=== PATIENT | female | born 1950 | race Caucasian/White ===

== ENCOUNTER 2016-12-09 20:40 | Inpatient (IN) | payer OTHER ==
[~2016-12-09] VITALS: Ht 157.5 cm; Wt 86.6 kg
[~2016-12-09 20:40] MED LIST: APPLE CIDER VI1 EAC1 PO; ASPIR-LOW81 MG PO; ASPIR-TRIN325 M1 PO; BISOPROLOL-HCT1 EACH PO; CELEBREX200 MG PO; CYMBALTA60 MG PO; Cymbalta PO; Ecotrin PO; FENOFIBRATE160 M1 PO; FEOSOL325 MG PO; IMDUR30 MG PO; L-LYSINE1000 M1 PO; LIPITOR40 MG PO; LISINOPRIL40 MG PO; LYSINE,L-LYSIN500 MG PO; Levothroid,Synthroid PO; Lipitor PO; NITROSTAT0.4 MG SL; NORVASC5 MG PO; Norvasc PO; PERCOCET 5/31 TABLET PO; PERCOCET 7.51 TABLET PO; PLAVIX75 MG PO; Percocet 7.5/325,End PO; Plavix PO; SENOKOT S,PE1 TABLET PO; SYNTHROID50 MCG PO; TOPAMAX50 MG PO; Topamax PO; Vicodin,Lortab 5/500 PO; ZESTRIL,PRINIVI40 M1 PO; ZETIA10 MG PO; ZIAC 10/6.251 TABLET PO; Zestril,Prinivil PO; Zetia PO; Ziac 10/6.25 PO; Zoloft PO
[2016-12-09 21:26] LABS: CREATININE 1.5 mg/dL (0.6-1.3)
[2016-12-09 21:44] LABS: HEMATOCRIT 46.9 % (36.0-46.0); MCH 29.2 PG (29.0-34.0); MCHC 33.3 G/DL (30.0-36.0); MCV 87.8 FL (83-99); MEAN PLAT.VOLUME 11.1 uM^3 (9.5-12.4); PLATELET COUNT 322 K/uL (156-360); RBC DIS.WIDTH-CV 13.5 % (11.8-14.6); RBC DIS.WIDTH-SD 42.7 % (39-53); RED BLOOD COUNT 5.34 M/uL (3.80-5.20); WHITE BLOOD COUNT 7.8 K/uL (4.1-10.2)
[2016-12-09 21:55] LABS: CHLORIDE 102 mEq/L (99-109); SODIUM 138 mEq/L (136-147)
[2016-12-09 21:57] LABS: GLUCOSE 110 mg/dL (70-99)
[2016-12-09 21:59] LABS: ANION GAP 24 MEQ/L (2-14); TOTAL BILIRUBIN 1.5 mg/dL (0.0-1.0)
[2016-12-09 22:01] LABS: ALKALINE PHOSPHATASE 56 IU/L (3-129); GFR ESTIMATE (CALCULATED) 34 mL/min/
[2016-12-09 22:02] LABS: UREA NITROGEN (BUN) 31 mg/dL (9-23)
[2016-12-09 22:04] LABS: LIPASE 11 U/L (1.0-51.0)
[2016-12-09 22:09] LABS: TROP-I INTERPRETATION NEGATIVE; TROPONIN-I < 0.01 ng/mL (0.0-0.30)
[2016-12-09 22:12] LABS: INTER. NORMALIZED RATIO 1.4; PROTHROMBIN TIME 14.7 (9.2-11.2); PTT 33.1 (25-32)
[2016-12-09] MEDS ORDERED: NORVASC10 MG PO (22:19)
[2016-12-09] MEDS ORDERED: LO-DOSE ASPIRIN81 M2 PO (22:19)
[2016-12-09] MEDS ORDERED: PLAVIX75 MG PO (22:19)
[2016-12-09] MEDS ORDERED: LEVO-T50 MCG PO (22:19)
[2016-12-09] MEDS ORDERED: LIPITOR80 MG PO (22:19)
[2016-12-09] MEDS ORDERED: IMDUR30 MG PO (22:20)
[2016-12-09] MEDS ORDERED: ZESTRIL40 MG PO (22:20)
[2016-12-09] MEDS ORDERED: ZIAC 10/6.251 TABLET PO (22:20)
[2016-12-09] MEDS ORDERED: CYMBALTA60 MG PO (22:21)
[2016-12-09] MEDS ORDERED: SKELAXIN800 MG PO (22:24)
[2016-12-09] MEDS ORDERED: PERCOCET 7.51 TABLET PO (22:25)
[2016-12-09] MEDS ORDERED: L-LYSINE500 M1 PO (22:25)
[2016-12-09] MEDS ORDERED: MELATONIN5 M1 PO (22:26)
[2016-12-09] MEDS ORDERED: apple cider vinegar PO (22:26)
[2016-12-09] MEDS ORDERED: HAIR, SKIN & N1 EAC1 PO (22:56)
[2016-12-10] VITALS (27 sets, daily range): BP systolic 0–192; BP diastolic 0–115
[2016-12-10 02:46] LABS: HEMATOCRIT 37.4 % (36.0-46.0); MCH 29.4 PG (29.0-34.0); MCHC 32.4 G/DL (30.0-36.0); MCV 90.8 FL (83-99); RBC DIS.WIDTH-CV 13.8 % (11.8-14.6); RBC DIS.WIDTH-SD 45.3 % (39-53); RED BLOOD COUNT 4.12 M/uL (3.80-5.20); WHITE BLOOD COUNT 9.4 K/uL (4.1-10.2)
[2016-12-10 02:50] LABS: CHLORIDE 110 mEq/L (99-109); POTASSIUM 3.9 mEq/L (3.7-5.4); SODIUM 139 mEq/L (136-147)
[2016-12-10 02:53] LABS: ANION GAP 17 MEQ/L (2-14)
[2016-12-10 02:56] LABS: GFR ESTIMATE (CALCULATED) > 59 mL/min/; GLUCOSE 72 mg/dL (70-99); UREA NITROGEN (BUN) 25 mg/dL (9-23)
[2016-12-10 03:02] LABS: TROP-I INTERPRETATION NEGATIVE; TROPONIN-I 0.02 ng/mL (0.0-0.30)
[2016-12-10 03:57] LABS: MEAN PLAT.VOLUME 10.9 uM^3 (9.5-12.4)
[2016-12-10 03:59] LABS: PLATELET COUNT 204 K/uL (156-360)
[2016-12-10 05:14] LABS: METH RESISTANT S AUREUS PCR NEGATIVE (NEGATIVE)
[2016-12-10 05:16] LABS: PROBE CHECK PASS; SPECIMEN PROCESSING CONTROL PASS
[2016-12-10 10:29] LABS: BASE EXCESS -9.3 mEq/L (-3 to +3); BICARBONATE 15.3 mEq/L (22-26); CARBOXY HGB 1.9 % (0-5); METHEMOGLOBIN 1.9 % (0-1.5); PCO2 29 mm Hg (35-45); PO2 58 mm Hg (80-100); SITE RR; pH 7.33 (7.35-7.45)
[2016-12-10 10:30] LABS: COMMENTS - BLOOD GASES A+C+; DEVICE NC; O2 FLOW 4 L/MIN; TOTAL RESP RATE 24 resp/min
[2016-12-10 16:59] LABS: POINT-OF-CARE METER ID UU13113731
[2016-12-10 17:31] LABS: POINT-OF-CARE METER ID UU14162636
[2016-12-10 20:03] LABS: BASE EXCESS -4.2 mEq/L (-3 to +3); BICARBONATE 17.9 mEq/L (22-26); CARBOXY HGB 1.7 % (0-5); COMMENTS - BLOOD GASES C+A+; DEVICE NC; METHEMOGLOBIN 2.1 % (0-1.5); O2 FLOW 4 L/MIN; PCO2 24 mm Hg (35-45); PO2 50 mm Hg (80-100); SITE LR; TOTAL RESP RATE 32 resp/min; pH 7.48 (7.35-7.45)
[2016-12-10 20:20] LABS: HEMATOCRIT 31.9 % (36.0-46.0); MCH 29.4 PG (29.0-34.0); MCHC 33.5 G/DL (30.0-36.0); MCV 87.6 FL (83-99); RBC DIS.WIDTH-CV 14.2 % (11.8-14.6); RED BLOOD COUNT 3.64 M/uL (3.80-5.20); WHITE BLOOD COUNT 8.5 K/uL (4.1-10.2)
[2016-12-10 20:29] LABS: ABS NEUTROPHIL COUNT 6.8; ANISOCYTOSIS 1+; BASOPHILS 0.8 %; BURR CELLS 1+; EOSINOPHIL ABS CT 0; HEMATOLOGY COMMENT 1 SN; INSTRUMENT ABS NEUTROPHIL CT 7.3 K/uL; LYMPHOCYTES 10.3 % (15.0-45.0); METAMYELOCYTES 9.4 %; PLAT.SUFFICIENCY ADEQUATE; SEG.NEUTROPHILS 20.5 % (46.0-76.0)
[2016-12-10 20:30] LABS: ANION GAP 11 MEQ/L (2-14); CHLORIDE 109 MEQ/L (99-109); MAGNESIUM 1.3 mg/dl (1.3-2.7); PLATELET COUNT UNABLE TO REPORT K/uL (156-360); SAMPLE HEMOLYSIS CHECK 0; SAMPLE ICTERIC CHECK 0; SAMPLE LIPEMIA CHECK 0; SODIUM 139 MEQ/L (136-147)
[2016-12-10 20:40] LABS: GFR ESTIMATE (CALCULATED) > 59 mL/min/; GLUCOSE 100 mg/dL (70-99); UREA NITROGEN (BUN) 29 mg/dL (9-23)
[2016-12-10 23:34] LABS: ADD MIUA? YES; BILIRUBIN NEGATIVE; BLOOD MODERATE; COLOR AMBER ((YELLOW)); GLUCOSE (STRIP) NEGATIVE; KETONES NEGATIVE; LEUKOCYTES NEGATIVE; NITRITE NEGATIVE; PROTEIN (STRIP) 30; SPECIFIC GRAVITY 1.031 (1.000-1.030); UROBILINOGEN 0.2 MG/DL (0.2-1.0)
[2016-12-10 23:53] LABS: POINT-OF-CARE METER ID UU13113731; POINT-OF-CARE USER ID RADDRS44
[2016-12-10 23:59] LABS: AMORPHOUS URATES CRYSTALS 3+; BACTERIA 3+ /HPF; CASTS NONE SEEN /LPF; CRYSTALS PRESENT; EPITHELIAL CELLS RARE /HPF; MUCUS NONE SEEN /LPF; RED BLOOD CELLS NONE SEEN /HPF (0-5); WHITE BLOOD CELLS NONE SEEN /HPF (0-5)
[2016-12-11] VITALS (23 sets, daily range): BP systolic 135–189; BP diastolic 68–98
[2016-12-11 05:19] LABS: POINT-OF-CARE METER ID UU14174217; POINT-OF-CARE USER ID RADDRS44
[2016-12-11 05:59] LABS: HEMATOCRIT 25.6 % (36.0-46.0); MCH 29.7 PG (29.0-34.0); MCHC 33.6 G/DL (30.0-36.0); MCV 88.3 FL (83-99); MEAN PLAT.VOLUME 11.1 uM^3 (9.5-12.4); RBC DIS.WIDTH-CV 14.3 % (11.8-14.6); RBC DIS.WIDTH-SD 45.8 % (39-53); WHITE BLOOD COUNT 6.8 K/uL (4.1-10.2)
[2016-12-11 06:15] LABS: HEMATOCRIT 25.8 % (36.0-46.0); MCH 29.4 PG (29.0-34.0); MCHC 33.3 G/DL (30.0-36.0); MCV 88.1 FL (83-99); MEAN PLAT.VOLUME 10.8 uM^3 (9.5-12.4); RBC DIS.WIDTH-CV 14.4 % (11.8-14.6); RBC DIS.WIDTH-SD 45.8 % (39-53); RED BLOOD COUNT 2.93 M/uL (3.80-5.20)
[2016-12-11 06:17] LABS: PLATELET COUNT 156 K/uL (156-360)
[2016-12-11 06:17] LABS: PLATELET COUNT 151 K/uL (156-360)
[2016-12-11 06:26] LABS: TROP-I INTERPRETATION NEGATIVE; TROPONIN-I 0.16 ng/mL (0.0-0.30)
[2016-12-11 06:34] LABS: ABS NEUTROPHIL COUNT 5.6; ANISOCYTOSIS 1+; BAND NEUTROPHILS 49.6 % (0-8.0); EOSINOPHIL ABS CT 0; LYMPHOCYTES 12.4 % (15.0-45.0); METAMYELOCYTES 4.4 %; PLAT.SUFFICIENCY ADEQUATE; SEG.NEUTROPHILS 30.1 % (46.0-76.0)
[2016-12-11 06:49] LABS: ALKALINE PHOSPHATASE 37 IU/L (3-129); ANION GAP 9 MEQ/L (2-14); CHLORIDE 108 MEQ/L (99-109); GFR ESTIMATE (CALCULATED) > 59 mL/min/; GLUCOSE 95 mg/dL (70-99); POTASSIUM 3.7 MEQ/L (3.7-5.4); SAMPLE HEMOLYSIS CHECK 0; SAMPLE ICTERIC CHECK 0; SAMPLE LIPEMIA CHECK 0; SODIUM 139 MEQ/L (136-147); TOTAL BILIRUBIN 0.8 MG/DL (0.0-1.0); UREA NITROGEN (BUN) 28 mg/dL (9-23)
[2016-12-11 06:50] LABS: ANION GAP 8 MEQ/L (2-14); CHLORIDE 109 MEQ/L (99-109); GFR ESTIMATE (CALCULATED) > 59 mL/min/; GLUCOSE 93 mg/dL (70-99); POTASSIUM 3.8 MEQ/L (3.7-5.4); SAMPLE HEMOLYSIS CHECK 0; SAMPLE ICTERIC CHECK 0; SAMPLE LIPEMIA CHECK 0; SODIUM 139 MEQ/L (136-147); UREA NITROGEN (BUN) 28 mg/dL (9-23)
[2016-12-11 08:01] LABS: BASE EXCESS -0.8 mEq/L (-3 to +3); BICARBONATE 22.9 mEq/L (22-26); CARBOXY HGB 1.4 % (0-5); METHEMOGLOBIN 1.7 % (0-1.5); PCO2 33 mm Hg (35-45); PO2 93 mm Hg (80-100); pH 7.45 (7.35-7.45)
[2016-12-11 08:02] LABS: COMMENTS - BLOOD GASES A+C+; DEVICE HFNC; O2 FLOW 10 L/MIN; SITE LR; TOTAL RESP RATE 20 resp/min
[2016-12-11 12:04] LABS: POINT-OF-CARE METER ID UU13113731
[2016-12-11 12:33] LABS: MAGNESIUM 1.3 mg/dl (1.3-2.7)
[2016-12-11 17:33] LABS: POINT-OF-CARE METER ID UU13113731
[2016-12-12] VITALS (21 sets, daily range): BP systolic 164–203; BP diastolic 65–113
[2016-12-12 06:12] LABS: POINT-OF-CARE METER ID UU13113731
[2016-12-12 12:42] LABS: POINT-OF-CARE METER ID UU13113731
[2016-12-12 17:50] LABS: POINT-OF-CARE METER ID UU13113731
[2016-12-12 21:55] LABS: AP Bone Isoenzyme 60 % (28-66); AP Intestine Isoenzyme 0 % (1-24); AP Liver Isoenzyme 40 % (25-69); AP Macrohepatic Isoenzyme 0 % (<=0); AP Placental Isoenzyme 0 % (<=0); Alkaline Phosphatase, Total 42 U/L (33-130)
[2016-12-12 23:47] LABS: POINT-OF-CARE METER ID UU13113731
[2016-12-13] VITALS (19 sets, daily range): BP systolic 142–195; BP diastolic 67–100
[2016-12-13 05:19] LABS: POINT-OF-CARE METER ID UU13113803
[2016-12-13 06:29] LABS: EOSINOPHIL (%) 0.1 % (0-5); HEMATOCRIT 30.1 % (36.0-46.0); IMMATURE GRANULOCYTE (%) 3.4 % (0.0-0.7); IMMATURE GRANULOCYTE COUNT 0.6 K/uL; INSTRUMENT ABS NEUTROPHIL CT 13.2 K/uL; LYMPHOCYTE COUNT 1.4 K/uL (1.0-2.8); MCH 29.1 PG (29.0-34.0); MCHC 33.6 G/DL (30.0-36.0); MCV 86.7 FL (83-99); MEAN PLAT.VOLUME 10.4 uM^3 (9.5-12.4); MONOCYTE (%) 9.2 % (3-12); MONOCYTE COUNT 1.5 K/uL (0-0.8); NEUTROPHIL COUNT 13.2 K/uL (1.8-6.4); RBC DIS.WIDTH-CV 14.5 % (11.8-14.6); RBC DIS.WIDTH-SD 46.3 % (39-53); RED BLOOD COUNT 3.47 M/uL (3.80-5.20)
[2016-12-13 06:38] LABS: PLATELET COUNT 220 K/uL (156-360); WHITE BLOOD COUNT 16.7 K/uL (4.1-10.2)
[2016-12-13 06:54] LABS: ANION GAP 12 MEQ/L (2-14); CHLORIDE 102 MEQ/L (99-109); GFR ESTIMATE (CALCULATED) > 59 mL/min/; GLUCOSE 85 mg/dL (70-99); POTASSIUM 3.4 MEQ/L (3.7-5.4); SAMPLE HEMOLYSIS CHECK 0; SAMPLE ICTERIC CHECK 0; SAMPLE LIPEMIA CHECK 0; SODIUM 138 MEQ/L (136-147); UREA NITROGEN (BUN) 19 mg/dL (9-23)
[2016-12-13 07:02] LABS: ALKALINE PHOSPHATASE 83 IU/L (3-129); MAGNESIUM 1.6 mg/dl (1.3-2.7); TOTAL BILIRUBIN 1.1 MG/DL (0.0-1.0)
[2016-12-14] VITALS (14 sets, daily range): BP systolic 168–189; BP diastolic 60–84
[2016-12-14 05:50] LABS: HEMATOCRIT 29.9 % (36.0-46.0); MCH 28.6 PG (29.0-34.0); MCHC 32.8 G/DL (30.0-36.0); MCV 87.2 FL (83-99); MEAN PLAT.VOLUME 10.6 uM^3 (9.5-12.4); PLATELET COUNT 242 K/uL (156-360); RBC DIS.WIDTH-CV 14.7 % (11.8-14.6); RBC DIS.WIDTH-SD 47.2 % (39-53); RED BLOOD COUNT 3.43 M/uL (3.80-5.20)
[2016-12-14 06:18] LABS: ALKALINE PHOSPHATASE 75 IU/L (3-129); ANION GAP 10 MEQ/L (2-14); CHLORIDE 100 MEQ/L (99-109); GFR ESTIMATE (CALCULATED) > 59 mL/min/; GLUCOSE 103 mg/dL (70-99); MAGNESIUM 1.8 mg/dl (1.3-2.7); POTASSIUM 3.5 MEQ/L (3.7-5.4); SAMPLE HEMOLYSIS CHECK 0; SAMPLE ICTERIC CHECK 0; SAMPLE LIPEMIA CHECK 0; SODIUM 136 MEQ/L (136-147); TOTAL BILIRUBIN 1.2 MG/DL (0.0-1.0); UREA NITROGEN (BUN) 21 mg/dL (9-23)
[2016-12-15] VITALS (12 sets, daily range): BP systolic 128–202; BP diastolic 63–89
[2016-12-15 05:53] LABS: HEMATOCRIT 27.4 % (36.0-46.0); MCH 28.5 PG (29.0-34.0); MCHC 32.5 G/DL (30.0-36.0); MCV 87.8 FL (83-99); MEAN PLAT.VOLUME 10.3 uM^3 (9.5-12.4); PLATELET COUNT 243 K/uL (156-360); RBC DIS.WIDTH-CV 14.6 % (11.8-14.6); RBC DIS.WIDTH-SD 46.7 % (39-53); RED BLOOD COUNT 3.12 M/uL (3.80-5.20); WHITE BLOOD COUNT 26.8 K/uL (4.1-10.2)
[2016-12-15 06:24] LABS: ANION GAP 9 MEQ/L (2-14); CHLORIDE 96 MEQ/L (99-109); GFR ESTIMATE (CALCULATED) > 59 mL/min/; GLUCOSE 97 mg/dL (70-99); MAGNESIUM 1.8 mg/dl (1.3-2.7); POTASSIUM 3.4 MEQ/L (3.7-5.4); SAMPLE HEMOLYSIS CHECK 0; SAMPLE ICTERIC CHECK 0; SAMPLE LIPEMIA CHECK 0; SODIUM 134 MEQ/L (136-147); UREA NITROGEN (BUN) 15 mg/dL (9-23)
[2016-12-16] VITALS (11 sets, daily range): BP systolic 157–203; BP diastolic 64–120
[2016-12-16 06:01] LABS: HEMATOCRIT 26.2 % (36.0-46.0); MCH 29.2 PG (29.0-34.0); MCHC 32.8 G/DL (30.0-36.0); MCV 88.8 FL (83-99); MEAN PLAT.VOLUME 10.4 uM^3 (9.5-12.4); PLATELET COUNT 267 K/uL (156-360); RBC DIS.WIDTH-CV 14.8 % (11.8-14.6); RBC DIS.WIDTH-SD 46.9 % (39-53); RED BLOOD COUNT 2.95 M/uL (3.80-5.20); WHITE BLOOD COUNT 22.7 K/uL (4.1-10.2)
[2016-12-16 10:38] LABS: ANION GAP 9 MEQ/L (2-14); CHLORIDE 96 MEQ/L (99-109); MAGNESIUM 1.9 mg/dl (1.3-2.7); POTASSIUM 3.7 MEQ/L (3.7-5.4); SAMPLE HEMOLYSIS CHECK 0; SAMPLE ICTERIC CHECK 0; SAMPLE LIPEMIA CHECK 0; SODIUM 131 MEQ/L (136-147)
[2016-12-16 10:44] LABS: GFR ESTIMATE (CALCULATED) > 59 mL/min/; GLUCOSE 76 mg/dL (70-99); UREA NITROGEN (BUN) 14 mg/dL (9-23)
[2016-12-17] VITALS (12 sets, daily range): BP systolic 151–201; BP diastolic 70–87
[2016-12-17 06:09] LABS: HEMATOCRIT 25.4 % (36.0-46.0); MCH 29.1 PG (29.0-34.0); MCHC 33.1 G/DL (30.0-36.0); MCV 87.9 FL (83-99); MEAN PLAT.VOLUME 10.2 uM^3 (9.5-12.4); PLATELET COUNT 306 K/uL (156-360); RBC DIS.WIDTH-CV 14.5 % (11.8-14.6); RBC DIS.WIDTH-SD 46.2 % (39-53); RED BLOOD COUNT 2.89 M/uL (3.80-5.20); WHITE BLOOD COUNT 21.1 K/uL (4.1-10.2)
[2016-12-17 06:36] LABS: ANION GAP 11 MEQ/L (2-14); CHLORIDE 94 MEQ/L (99-109); GFR ESTIMATE (CALCULATED) > 59 mL/min/; GLUCOSE 76 mg/dL (70-99); POTASSIUM 3.3 MEQ/L (3.7-5.4); SAMPLE HEMOLYSIS CHECK 0; SAMPLE ICTERIC CHECK 0; SAMPLE LIPEMIA CHECK 0; SODIUM 134 MEQ/L (136-147); UREA NITROGEN (BUN) 11 mg/dL (9-23)
[2016-12-17 06:38] LABS: MAGNESIUM 1.5 mg/dl (1.3-2.7)
[2016-12-18] VITALS (9 sets, daily range): BP systolic 150–186; BP diastolic 66–74
[2016-12-18 06:55] LABS: HEMATOCRIT 24.5 % (36.0-46.0); MCH 28.5 PG (29.0-34.0); MCHC 32.2 G/DL (30.0-36.0); MCV 88.4 FL (83-99); MEAN PLAT.VOLUME 10.3 uM^3 (9.5-12.4); PLATELET COUNT 369 K/uL (156-360); RBC DIS.WIDTH-CV 14.3 % (11.8-14.6); RBC DIS.WIDTH-SD 46.4 % (39-53); RED BLOOD COUNT 2.77 M/uL (3.80-5.20); WHITE BLOOD COUNT 20.9 K/uL (4.1-10.2)
[2016-12-18 07:16] LABS: ANION GAP 10 MEQ/L (2-14); CHLORIDE 94 MEQ/L (99-109); GFR ESTIMATE (CALCULATED) > 59 mL/min/; GLUCOSE 70 mg/dL (70-99); POTASSIUM 3.6 MEQ/L (3.7-5.4); SAMPLE HEMOLYSIS CHECK 0; SAMPLE ICTERIC CHECK 0; SAMPLE LIPEMIA CHECK 0; SODIUM 132 MEQ/L (136-147); UREA NITROGEN (BUN) 11 mg/dL (9-23)
[2016-12-19] VITALS (21 sets, daily range): BP systolic 107–194; BP diastolic 37–95
[2016-12-19 06:21] LABS: ANION GAP 8 MEQ/L (2-14); CHLORIDE 94 MEQ/L (99-109); GFR ESTIMATE (CALCULATED) > 59 mL/min/; GLUCOSE 80 mg/dL (70-99); POTASSIUM 3.8 MEQ/L (3.7-5.4); SAMPLE HEMOLYSIS CHECK 0; SAMPLE ICTERIC CHECK 0; SAMPLE LIPEMIA CHECK 0; SODIUM 131 MEQ/L (136-147); UREA NITROGEN (BUN) 14 mg/dL (9-23)
[2016-12-19 06:26] LABS: BASOPHIL COUNT 0.1 K/uL (0-0.1); EOSINOPHIL (%) 0.5 % (0-5); EOSINOPHIL COUNT 0.1 K/uL (0-0.3); HEMATOCRIT 20.3 % (36.0-46.0); IMMATURE GRANULOCYTE (%) 1.9 % (0.0-0.7); IMMATURE GRANULOCYTE COUNT 0.4 K/uL; INSTRUMENT ABS NEUTROPHIL CT 15.9 K/uL; LYMPHOCYTE COUNT 1.3 K/uL (1.0-2.8); MCH 29.1 PG (29.0-34.0); MCV 88.3 FL (83-99); MEAN PLAT.VOLUME 10.3 uM^3 (9.5-12.4); MONOCYTE COUNT 1.3 K/uL (0-0.8); NEUTROPHIL (%) 83.7 % (45-76); NEUTROPHIL COUNT 15.9 K/uL (1.8-6.4); PLATELET COUNT 384 K/uL (156-360); RBC DIS.WIDTH-CV 14.6 % (11.8-14.6); RBC DIS.WIDTH-SD 45.9 % (39-53)
[2016-12-19 08:15] LABS: ALKALINE PHOSPHATASE 56 IU/L (3-129); DIRECT BILIRUBIN 0.3 mg/dL (0.0-0.3); MAGNESIUM 1.7 mg/dl (1.3-2.7); PREALBUMIN 5.6 mg/dL (10-40); TOTAL BILIRUBIN 0.7 MG/DL (0.0-1.0); TRIGLYCERIDES 156 MG/DL (Normal: <150)
[2016-12-20] VITALS (12 sets, daily range): BP systolic 127–178; BP diastolic 55–105
[2016-12-20 06:36] LABS: ANION GAP 8 MEQ/L (2-14); CHLORIDE 95 MEQ/L (99-109); GFR ESTIMATE (CALCULATED) > 59 mL/min/; MAGNESIUM 1.8 mg/dl (1.3-2.7); POTASSIUM 3.6 MEQ/L (3.7-5.4); SAMPLE HEMOLYSIS CHECK 0; SAMPLE ICTERIC CHECK 0; SAMPLE LIPEMIA CHECK 0; SODIUM 132 MEQ/L (136-147); UREA NITROGEN (BUN) 15 mg/dL (9-23)
[2016-12-20 06:38] LABS: GLUCOSE 133 mg/dL (70-99)
[2016-12-20 08:45] LABS: BASOPHIL COUNT 0.1 K/uL (0-0.1); EOSINOPHIL (%) 0.8 % (0-5); EOSINOPHIL COUNT 0.1 K/uL (0-0.3); IMMATURE GRANULOCYTE (%) 2.4 % (0.0-0.7); IMMATURE GRANULOCYTE COUNT 0.4 K/uL; INSTRUMENT ABS NEUTROPHIL CT 12.9 K/uL; LYMPHOCYTE COUNT 1.1 K/uL (1.0-2.8); MCH 29.8 PG (29.0-34.0); MCHC 33.1 G/DL (30.0-36.0); MEAN PLAT.VOLUME 10.5 uM^3 (9.5-12.4); MONOCYTE (%) 8.4 % (3-12); MONOCYTE COUNT 1.3 K/uL (0-0.8); NEUTROPHIL (%) 81.3 % (45-76); NEUTROPHIL COUNT 12.9 K/uL (1.8-6.4); PLATELET COUNT 425 K/uL (156-360); RBC DIS.WIDTH-CV 14.7 % (11.8-14.6); RBC DIS.WIDTH-SD 46.8 % (39-53); WHITE BLOOD COUNT 15.9 K/uL (4.1-10.2)
[2016-12-20 08:52] LABS: RED BLOOD COUNT 2.89 M/uL (3.80-5.20)
[2016-12-21 03:46] VITALS: BP 158/89
[2016-12-21 06:46] LABS: BASOPHIL COUNT 0.1 K/uL (0-0.1); EOSINOPHIL (%) 0.9 % (0-5); EOSINOPHIL COUNT 0.1 K/uL (0-0.3); IMMATURE GRANULOCYTE (%) 3.1 % (0.0-0.7); IMMATURE GRANULOCYTE COUNT 0.4 K/uL; INSTRUMENT ABS NEUTROPHIL CT 10.1 K/uL; LYMPHOCYTE COUNT 1.1 K/uL (1.0-2.8); MCH 29.1 PG (29.0-34.0); MCHC 32.3 G/DL (30.0-36.0); MEAN PLAT.VOLUME 10.4 uM^3 (9.5-12.4); MONOCYTE (%) 10.6 % (3-12); MONOCYTE COUNT 1.4 K/uL (0-0.8); NEUTROPHIL (%) 76.3 % (45-76); NEUTROPHIL COUNT 10.1 K/uL (1.8-6.4); PLATELET COUNT 483 K/uL (156-360); RBC DIS.WIDTH-CV 15.1 % (11.8-14.6); RBC DIS.WIDTH-SD 48.2 % (39-53); RED BLOOD COUNT 2.89 M/uL (3.80-5.20); WHITE BLOOD COUNT 13.2 K/uL (4.1-10.2)
[2016-12-21 07:15] LABS: ANION GAP 10 MEQ/L (2-14); CHLORIDE 99 MEQ/L (99-109); GFR ESTIMATE (CALCULATED) > 59 mL/min/; GLUCOSE 129 mg/dL (70-99); MAGNESIUM 1.8 mg/dl (1.3-2.7); POTASSIUM 3.9 MEQ/L (3.7-5.4); SAMPLE HEMOLYSIS CHECK 0; SAMPLE ICTERIC CHECK 0; SAMPLE LIPEMIA CHECK 0; SODIUM 134 MEQ/L (136-147); UREA NITROGEN (BUN) 15 mg/dL (9-23)
[2016-12-21 07:50] VITALS: BP 183/90
[2016-12-21 11:49] VITALS: BP 179/83
[2016-12-21 16:05] VITALS: BP 172/81
[2016-12-21 19:10] VITALS: BP 134/64
[2016-12-22] VITALS (7 sets, daily range): BP systolic 115–146; BP diastolic 55–73
[2016-12-22 07:10] LABS: ANION GAP 9 MEQ/L (2-14); CHLORIDE 100 MEQ/L (99-109); GFR ESTIMATE (CALCULATED) > 59 mL/min/; GLUCOSE 135 mg/dL (70-99); MAGNESIUM 1.8 mg/dl (1.3-2.7); POTASSIUM 4.4 MEQ/L (3.7-5.4); SAMPLE HEMOLYSIS CHECK 0; SAMPLE ICTERIC CHECK 0; SAMPLE LIPEMIA CHECK 0; SODIUM 135 MEQ/L (136-147); UREA NITROGEN (BUN) 19 mg/dL (9-23)
[2016-12-23] VITALS (7 sets, daily range): BP systolic 126–145; BP diastolic 58–78
[2016-12-23 06:33] LABS: HEMATOCRIT 26.8 % (36.0-46.0); MCH 29.5 PG (29.0-34.0); MCHC 32.5 G/DL (30.0-36.0); MCV 90.8 FL (83-99); MEAN PLAT.VOLUME 9.9 uM^3 (9.5-12.4); PLATELET COUNT 562 K/uL (156-360); RBC DIS.WIDTH-CV 15.1 % (11.8-14.6); RBC DIS.WIDTH-SD 49.9 % (39-53); RED BLOOD COUNT 2.95 M/uL (3.80-5.20); WHITE BLOOD COUNT 13.4 K/uL (4.1-10.2)
[2016-12-23 07:00] LABS: ANION GAP 9 MEQ/L (2-14); CHLORIDE 102 MEQ/L (99-109); GFR ESTIMATE (CALCULATED) > 59 mL/min/; GLUCOSE 129 mg/dL (70-99); MAGNESIUM 1.9 mg/dl (1.3-2.7); POTASSIUM 4.7 MEQ/L (3.7-5.4); SAMPLE HEMOLYSIS CHECK 0; SAMPLE ICTERIC CHECK 0; SAMPLE LIPEMIA CHECK 0; SODIUM 135 MEQ/L (136-147); UREA NITROGEN (BUN) 23 mg/dL (9-23)
[2016-12-24 04:00] VITALS: BP 130/62
[2016-12-24 06:26] LABS: BASOPHIL COUNT 0.1 K/uL (0-0.1); EOSINOPHIL (%) 0.8 % (0-5); EOSINOPHIL COUNT 0.1 K/uL (0-0.3); HEMATOCRIT 27.1 % (36.0-46.0); IMMATURE GRANULOCYTE (%) 4.8 % (0.0-0.7); IMMATURE GRANULOCYTE COUNT 0.8 K/uL; INSTRUMENT ABS NEUTROPHIL CT 11.3 K/uL; LYMPHOCYTE COUNT 1.5 K/uL (1.0-2.8); MCH 29.8 PG (29.0-34.0); MCHC 32.8 G/DL (30.0-36.0); MCV 90.6 FL (83-99); MEAN PLAT.VOLUME 9.8 uM^3 (9.5-12.4); MONOCYTE (%) 12.3 % (3-12); MONOCYTE COUNT 1.9 K/uL (0-0.8); NEUTROPHIL (%) 71.9 % (45-76); NEUTROPHIL COUNT 11.3 K/uL (1.8-6.4); PLATELET COUNT 566 K/uL (156-360); RBC DIS.WIDTH-CV 14.9 % (11.8-14.6); RBC DIS.WIDTH-SD 49.5 % (39-53); RED BLOOD COUNT 2.99 M/uL (3.80-5.20); WHITE BLOOD COUNT 15.7 K/uL (4.1-10.2)
[2016-12-24 06:53] LABS: ALKALINE PHOSPHATASE 63 IU/L (3-129); ANION GAP 8 MEQ/L (2-14); CHLORIDE 101 MEQ/L (99-109); DIRECT BILIRUBIN 0.1 mg/dL (0.0-0.3); GFR ESTIMATE (CALCULATED) > 59 mL/min/; GLUCOSE 117 mg/dL (70-99); PREALBUMIN 10.2 mg/dL (10-40); SAMPLE HEMOLYSIS CHECK 0; SAMPLE ICTERIC CHECK 0; SAMPLE LIPEMIA CHECK 0; SODIUM 133 MEQ/L (136-147); TRIGLYCERIDES 108 MG/DL (Normal: <150); UREA NITROGEN (BUN) 24 mg/dL (9-23)
[2016-12-24 07:00] LABS: TOTAL BILIRUBIN 0.4 MG/DL (0.0-1.0)
[2016-12-24 09:01] VITALS: BP 140/83
[2016-12-24 11:08] VITALS: BP 129/73
[2016-12-24 15:00] VITALS: BP 138/65
[2016-12-24 15:40] LABS: C DIFF TOXIN NEGATIVE (NEGATIVE)
[2016-12-24 15:43] LABS: PROBE CHECK PASS; SPECIMEN PROCESSING CONTROL PASS
[2016-12-24 20:00] VITALS: BP 133/65
[2016-12-24 23:41] VITALS: BP 163/74
[2016-12-25 04:55] VITALS: BP 177/82
[2016-12-25 06:58] LABS: HEMATOCRIT 28.4 % (36.0-46.0); MCHC 32.4 G/DL (30.0-36.0); MCV 89.6 FL (83-99); MEAN PLAT.VOLUME 9.8 uM^3 (9.5-12.4); PLATELET COUNT 553 K/uL (156-360); RBC DIS.WIDTH-CV 14.6 % (11.8-14.6); RBC DIS.WIDTH-SD 47.9 % (39-53); RED BLOOD COUNT 3.17 M/uL (3.80-5.20); WHITE BLOOD COUNT 15.7 K/uL (4.1-10.2)
[2016-12-25 07:24] LABS: ANION GAP 12 MEQ/L (2-14); CHLORIDE 97 MEQ/L (99-109); GFR ESTIMATE (CALCULATED) > 59 mL/min/; GLUCOSE 122 mg/dL (70-99); MAGNESIUM 2.1 mg/dl (1.3-2.7); POTASSIUM 4.6 MEQ/L (3.7-5.4); SAMPLE HEMOLYSIS CHECK 0; SAMPLE ICTERIC CHECK 0; SAMPLE LIPEMIA CHECK 0; SODIUM 131 MEQ/L (136-147); UREA NITROGEN (BUN) 29 mg/dL (9-23)
[2016-12-25 08:51] VITALS: BP 145/69
[2016-12-25 11:33] VITALS: BP 125/60
[2016-12-25 14:51] VITALS: BP 139/77
[2016-12-25 19:55] VITALS: BP 118/59
[2016-12-25 23:51] VITALS: BP 138/66
[2016-12-26 05:07] VITALS: BP 155/73
[2016-12-26 07:20] VITALS: BP 159/75
[2016-12-26 11:37] VITALS: BP 127/65
[2016-12-26 12:22] LABS: HEMATOCRIT 25.4 % (36.0-46.0); MCH 29.6 PG (29.0-34.0); MCHC 32.7 G/DL (30.0-36.0); MCV 90.7 FL (83-99); MEAN PLAT.VOLUME 9.9 uM^3 (9.5-12.4); PLATELET COUNT 505 K/uL (156-360); RBC DIS.WIDTH-CV 14.5 % (11.8-14.6); RBC DIS.WIDTH-SD 47.6 % (39-53); WHITE BLOOD COUNT 12.8 K/uL (4.1-10.2)
[2016-12-26 14:03] LABS: ANION GAP 11 MEQ/L (2-14); CHLORIDE 98 MEQ/L (99-109); GFR ESTIMATE (CALCULATED) > 59 mL/min/; GLUCOSE 117 mg/dL (70-99); MAGNESIUM 1.8 mg/dl (1.3-2.7); POTASSIUM 3.8 MEQ/L (3.7-5.4); SAMPLE HEMOLYSIS CHECK 0; SAMPLE ICTERIC CHECK 0; SAMPLE LIPEMIA CHECK 0; SODIUM 135 MEQ/L (136-147); UREA NITROGEN (BUN) 26 mg/dL (9-23)
[2016-12-26 15:42] VITALS: BP 141/65
[2016-12-26 19:40] VITALS: BP 140/65
[2016-12-26 23:32] VITALS: BP 139/66
[2016-12-27 04:55] VITALS: BP 136/62
[2016-12-27 07:13] LABS: HEMATOCRIT 26.3 % (36.0-46.0); MCH 29.1 PG (29.0-34.0); MCHC 32.7 G/DL (30.0-36.0); MCV 88.9 FL (83-99); MEAN PLAT.VOLUME 9.6 uM^3 (9.5-12.4); PLATELET COUNT 427 K/uL (156-360); RBC DIS.WIDTH-CV 14.4 % (11.8-14.6); RBC DIS.WIDTH-SD 46.7 % (39-53); RED BLOOD COUNT 2.96 M/uL (3.80-5.20); WHITE BLOOD COUNT 10.8 K/uL (4.1-10.2)
[2016-12-27 07:46] LABS: ANION GAP 9 MEQ/L (2-14); CHLORIDE 100 MEQ/L (99-109); GFR ESTIMATE (CALCULATED) > 59 mL/min/; GLUCOSE 103 mg/dL (70-99); MAGNESIUM 1.7 mg/dl (1.3-2.7); SAMPLE HEMOLYSIS CHECK 0; SAMPLE ICTERIC CHECK 0; SAMPLE LIPEMIA CHECK 0; SODIUM 135 MEQ/L (136-147); UREA NITROGEN (BUN) 17 mg/dL (9-23)
[2016-12-27 08:00] VITALS: BP 156/72
[2016-12-27] MEDS ORDERED: NIFEDIPINE ER30 MG PO (10:48)
[2016-12-27] MEDS ORDERED: LOPRESSOR50 MG PO (10:48)
[2016-12-27] MEDS ORDERED: HYDROCHLOROTH12.5 M3 PO (10:48)
[2016-12-27 12:00] VITALS: BP 157/73
[2016-12-27 16:00] VITALS: BP 166/78
[2016-12-27] MEDS ORDERED: PERCOCET 7.51 TABLET PO (16:48)
[2016-12-27 16:53] VITALS: BP 158/74
== END 2016-12-27 18:00 | disposition home or self-care (01) | DRG 853 ==
LOC: EME → EDBD 20:40 → EME 20:40 → SDC 23:05 → 4WEST 12-10 02:17 → 4EAST 12-20 17:29 → 4SOUTH 12-26 15:11
PROVIDERS: Anesthesiology; Emergency Medicine; Hospitalist; Internal Medicine Critical Care Medicine; Internal Medicine Nephrology; Physician Assistant; Student in an Organized Health Care Education/Training Program; Surgery
DX: A41.51 Sepsis due to Escherichia coli [E. coli] (principal); R65.21 Severe sepsis with septic shock; J96.00 Acute respiratory failure, unspecified whether with hypoxia or hypercapnia; E43 Unspecified severe protein-calorie malnutrition; N17.9 Acute kidney failure, unspecified; E87.1 Hypo-osmolality and hyponatremia; R18.8 Other ascites; K76.0 Fatty (change of) liver, not elsewhere classified; K57.20 Diverticulitis of large intestine with perforation and abscess without bleeding; E87.6 Hypokalemia; I25.10 Atherosclerotic heart disease of native coronary artery without angina pectoris; Z95.5 Presence of coronary angioplasty implant and graft; E66.9 Obesity, unspecified; I10 Essential (primary) hypertension; E78.5 Hyperlipidemia, unspecified; E03.9 Hypothyroidism, unspecified; F32.9 Major depressive disorder, single episode, unspecified; Z87.891 Personal history of nicotine dependence; F11.20 Opioid dependence, uncomplicated; Z96.652 Presence of left artificial knee joint; Z98.82 Breast implant status; G89.29 Other chronic pain; M54.9 Dorsalgia, unspecified; R60.1 Generalized edema; E86.0 Dehydration; K94.09 Other complications of colostomy; E87.70 Fluid overload, unspecified; E83.42 Hypomagnesemia; Z68.34 Body mass index [BMI] 34.0-34.9, adult; K56.7 Ileus, unspecified; T81.4XXA Infection following a procedure, initial encounter
CPT/HCPCS: 10030; 36600; 71010; 74000; 74176; 74177; 77002; 80047; 80048; 80048 91; 80053; 80069; 80076; 81003; 82248; 82803; 82948; 83605; 83690; 83735; 83880; 84075 90; 84080 90; 84100; 84134; 84478; 84484; 84540; 84630 90; 85025; 85027; 85610; 85730; 86850; 86900; 86901; 86920; 87040; 87070; 87075; 87076; 87077; 87086; 87185; 87186; 87205; 87493; 87641; 87801; 88304; 88307; 93005; 94002; 94010; 94640; 94640 76; 94667; 94668; 94760; 94799; 97530 GO; 97530 GP; 99202; 99281; 99285; C1729; C1769; J0360; J0696; J1170; J1450; J1650; J1815; J1940; J2250; J2270; J2405; J2543; J2765; J2997; J3010; J3475; J3480; J7050; J7120; P9016; P9045; P9047; S0030

== ENCOUNTER 2017-03-14 11:42 | Inpatient (IN) | payer OTHER ==
[~2017-03-14] VITALS: Ht 157.5 cm; Wt 77.1 kg
[~2017-03-14 11:42] MED LIST changes: +HAIR, SKIN & N1 EAC1 PO; +HYDROCHLOROTH12.5 M3 PO; +L-LYSINE500 M1 PO; +LEVO-T50 MCG PO; +LIPITOR80 MG PO; +LO-DOSE ASPIRIN81 M2 PO; +LOPRESSOR50 MG PO; +MELATONIN5 M1 PO; +NIFEDIPINE ER30 MG PO; +NORVASC10 MG PO; +SKELAXIN800 MG PO; +ZESTRIL40 MG PO; +apple cider vinegar PO
[2017-03-14 12:49] LABS: HEMATOCRIT 31.9 % (36.0-46.0); MCH 26.3 PG (29.0-34.0); MCHC 32.3 G/DL (30.0-36.0); MCV 81.4 FL (83-99); MEAN PLAT.VOLUME 10.1 uM^3 (9.5-12.4); PLATELET COUNT 244 K/uL (156-360); RBC DIS.WIDTH-CV 14.3 % (11.8-14.6); RED BLOOD COUNT 3.92 M/uL (3.80-5.20)
[2017-03-14 12:59] LABS: CHLORIDE 96 mEq/L (99-109); SODIUM 135 mEq/L (136-147)
[2017-03-14 13:01] LABS: GLUCOSE 127 mg/dL (70-99)
[2017-03-14 13:02] LABS: ANION GAP 11 MEQ/L (2-14)
[2017-03-14 13:03] LABS: TOTAL BILIRUBIN 0.4 mg/dL (0.0-1.0)
[2017-03-14 13:05] LABS: ALKALINE PHOSPHATASE 107 IU/L (3-129); GFR ESTIMATE (CALCULATED) > 59 mL/min/
[2017-03-14 13:06] LABS: UREA NITROGEN (BUN) 13 mg/dL (9-23)
[2017-03-14 14:10] LABS: ADD MIUA? YES; BILIRUBIN NEGATIVE; BLOOD NEGATIVE; COLOR YELLOW ((YELLOW)); GLUCOSE (STRIP) NEGATIVE; KETONES NEGATIVE; LEUKOCYTES LARGE; NITRITE NEGATIVE; PROTEIN (STRIP) NEGATIVE; SPECIFIC GRAVITY 1.014 (1.000-1.030); UROBILINOGEN 0.2 MG/DL (0.2-1.0)
[2017-03-14 14:15] LABS: BACTERIA RARE /HPF; EPITHELIAL CELLS 1+ /HPF; MUCUS NONE SEEN /LPF; UCUL ADDED? NO
[2017-03-14] MEDS ORDERED: APPLE CIDER VI1 EAC1 PO (16:03)
[2017-03-14] MEDS ORDERED: HYDROCHLOROTH12.5 M3 PO (16:05)
[2017-03-14] MEDS ORDERED: PENNSAID112 GM TP (16:07)
[2017-03-14] MEDS ORDERED: LORAZEPAM1 MG PO (16:07)
[2017-03-14 21:03] VITALS: BP 135/62
[2017-03-15 00:01] VITALS: BP 121/56
[2017-03-15 04:17] VITALS: BP 134/71
[2017-03-15 07:04] LABS: HEMATOCRIT 29.1 % (36.0-46.0); MCH 27.2 PG (29.0-34.0); MCV 82.4 FL (83-99); MEAN PLAT.VOLUME 10.6 uM^3 (9.5-12.4); PLATELET COUNT 221 K/uL (156-360); RBC DIS.WIDTH-CV 14.6 % (11.8-14.6); RBC DIS.WIDTH-SD 43.2 % (39-53); RED BLOOD COUNT 3.53 M/uL (3.80-5.20); WHITE BLOOD COUNT 9.6 K/uL (4.1-10.2)
[2017-03-15 07:14] LABS: ANION GAP 12 MEQ/L (2-14); CHLORIDE 101 MEQ/L (99-109); GFR ESTIMATE (CALCULATED) > 59 mL/min/; GLUCOSE 122 mg/dL (70-99); POTASSIUM 3.4 MEQ/L (3.7-5.4); SAMPLE HEMOLYSIS CHECK 0; SAMPLE ICTERIC CHECK 0; SAMPLE LIPEMIA CHECK 0; SODIUM 140 MEQ/L (136-147); UREA NITROGEN (BUN) 9 mg/dL (9-23)
[2017-03-15 07:58] VITALS: BP 169/72
[2017-03-15 08:20] LABS: INTER. NORMALIZED RATIO 1.1; PROTHROMBIN TIME 11.2 (9.2-11.2); PTT 28.5 (25-32)
[2017-03-15 15:15] VITALS: BP 172/78
[2017-03-15 19:48] VITALS: BP 144/75
[2017-03-15 23:47] VITALS: BP 158/73
[2017-03-16 04:03] VITALS: BP 140/65
[2017-03-16 07:52] VITALS: BP 185/84
[2017-03-16 11:34] VITALS: BP 178/78
[2017-03-16 16:45] VITALS: BP 179/84
[2017-03-16 20:23] VITALS: BP 165/84
[2017-03-16 23:48] VITALS: BP 162/82
[2017-03-17] VITALS (10 sets, daily range): BP systolic 132–198; BP diastolic 64–88
[2017-03-17 12:03] LABS: ANION GAP 8 MEQ/L (2-14); CHLORIDE 104 MEQ/L (99-109); GFR ESTIMATE (CALCULATED) > 59 mL/min/; GLUCOSE 98 mg/dL (70-99); SAMPLE HEMOLYSIS CHECK 0; SAMPLE ICTERIC CHECK 0; SAMPLE LIPEMIA CHECK 0; SODIUM 140 MEQ/L (136-147); UREA NITROGEN (BUN) 8 mg/dL (9-23)
[2017-03-17 12:04] LABS: POTASSIUM 4.5 MEQ/L (3.7-5.4)
[2017-03-18 04:25] VITALS: BP 130/74
[2017-03-18 07:54] VITALS: BP 163/84
[2017-03-18 10:42] VITALS: BP 138/86
[2017-03-18 12:40] LABS: BASOPHIL COUNT 0.1 K/uL (0-0.1); EOSINOPHIL (%) 0.8 % (0-5); EOSINOPHIL COUNT 0.1 K/uL (0-0.3); IMMATURE GRANULOCYTE (%) 2.9 % (0.0-0.7); IMMATURE GRANULOCYTE COUNT 0.5 K/uL; INSTRUMENT ABS NEUTROPHIL CT 12.9 K/uL; LYMPHOCYTE COUNT 2.1 K/uL (1.0-2.8); MCH 25.8 PG (29.0-34.0); MCHC 31.8 G/DL (30.0-36.0); MEAN PLAT.VOLUME 9.7 uM^3 (9.5-12.4); MONOCYTE (%) 5.9 % (3-12); NEUTROPHIL (%) 77.3 % (45-76); NEUTROPHIL COUNT 12.9 K/uL (1.8-6.4); RBC DIS.WIDTH-CV 14.4 % (11.8-14.6); RBC DIS.WIDTH-SD 41.8 % (39-53); WHITE BLOOD COUNT 16.7 K/uL (4.1-10.2)
[2017-03-18 12:41] LABS: PLATELET COUNT 442 K/uL (156-360); RED BLOOD COUNT 5.43 M/uL (3.80-5.20)
[2017-03-18 13:10] LABS: TROP-I INTERPRETATION NEGATIVE; TROPONIN-I < 0.01 ng/mL (0.0-0.30)
[2017-03-18 15:58] VITALS: BP 166/86
[2017-03-18 20:08] VITALS: BP 159/79
[2017-03-18 23:52] VITALS: BP 149/89
[2017-03-19 04:01] VITALS: BP 179/99
[2017-03-19 07:15] VITALS: BP 173/74
[2017-03-19 15:30] VITALS: BP 170/92
[2017-03-19] MEDS ORDERED: AUGMENTIN875 MG PO (17:43)
== END 2017-03-19 21:01 | disposition home health service (06) | DRG 392 ==
LOC: EME 11:42 → EDOF 16:54 → 3EAST 16:54
PROVIDERS: Internal Medicine; Radiology Diagnostic Radiology; Surgery
PROC: 0W9G30Z Drainage of Peritoneal Cavity with Drainage Device, Percutaneous Approach (ICD-10-PCS; principal; 2017-03-15)
DX: K57.20 Diverticulitis of large intestine with perforation and abscess without bleeding (principal); B95.7 Other staphylococcus as the cause of diseases classified elsewhere; B96.20 Unspecified Escherichia coli [E. coli] as the cause of diseases classified elsewhere; B96.89 Other specified bacterial agents as the cause of diseases classified elsewhere; E87.6 Hypokalemia; R55 Syncope and collapse; D64.9 Anemia, unspecified; I10 Essential (primary) hypertension; I25.10 Atherosclerotic heart disease of native coronary artery without angina pectoris; E03.9 Hypothyroidism, unspecified; E78.5 Hyperlipidemia, unspecified; I25.2 Old myocardial infarction; K21.9 Gastro-esophageal reflux disease without esophagitis; M43.16 Spondylolisthesis, lumbar region; M47.816 Spondylosis without myelopathy or radiculopathy, lumbar region; M51.26 Other intervertebral disc displacement, lumbar region; N20.0 Calculus of kidney; F32.9 Major depressive disorder, single episode, unspecified; Z79.82 Long term (current) use of aspirin; Z87.891 Personal history of nicotine dependence; Z90.49 Acquired absence of other specified parts of digestive tract; Z93.3 Colostomy status; Z95.5 Presence of coronary angioplasty implant and graft
CPT/HCPCS: 49406; 74176; 74177; 80048; 80053; 81003; 83605; 84484; 85025; 85027; 85610; 85730; 87040; 87070; 87075; 87076; 87077; 87185; 87186; 87205; 93005; 99281; 99285; J0360; J1170; J1650; J2270; J2405; J2543; J3010; J7030; J7050

== ENCOUNTER 2017-10-24 21:53 | Inpatient (IN) | payer OTHER ==
[~2017-10-24] VITALS: Ht 157.5 cm; Wt 78.0 kg
[~2017-10-24 21:53] MED LIST changes: +AUGMENTIN875 MG PO; +FISH OIL 1,0001 EAC7 PO; +LORAZEPAM1 MG PO; +MELATONIN10 M1 PO; +PENNSAID112 GM TP; +PERCOCET 10/1 TABLET PO
[2017-10-25] MEDS ORDERED: 3 DAY VAGINAL25 GM VG (08:06)
[2017-10-25] MEDS ORDERED: [UNRECOGNIZED DRUG - REMARK] (08:10)
[2017-10-25 08:18] VITALS: BP 141/79
[2017-10-25 18:35] LABS: HEMOGLOBIN 9.3 G/DL (11.9-15.5); MCV 92.1 FL (83-99)
[2017-10-25 18:53] LABS: CHLORIDE 107 MEQ/L (99-109); GFR ESTIMATE (CALCULATED) > 59 mL/min/; GLUCOSE 220 mg/dL (70-99); POTASSIUM 3.7 MEQ/L (3.7-5.4); SODIUM 141 MEQ/L (136-147); UREA NITROGEN (BUN) 15 mg/dL (9-23)
[2017-10-25 21:30] VITALS: BP 126/57
[2017-10-25 22:50] VITALS: BP 129/58
[2017-10-26] VITALS (8 sets, daily range): BP systolic 115–200; BP diastolic 56–90
[2017-10-26 07:10] LABS: HEMATOCRIT 22.5 % (36.0-46.0); HEMOGLOBIN 7.4 G/DL (11.9-15.5); MCHC 32.9 G/DL (30.0-36.0); MCV 88.2 FL (83-99); PLATELET COUNT 184 K/uL (156-360); RBC DIS.WIDTH-CV 13.2 % (11.8-14.6); RBC DIS.WIDTH-SD 42.2 % (39-53); WHITE BLOOD COUNT 16.3 K/uL (4.1-10.2)
[2017-10-26 07:15] LABS: RED BLOOD COUNT 2.55 M/uL (3.80-5.20)
[2017-10-26 07:37] LABS: ALBUMIN 2.8 G/DL (3.2-4.8); ALKALINE PHOSPHATASE 38 IU/L (3-129); ALT (GPT) 34 IU/L (3-49); AST (GOT) 31 IU/L (2-34); CHLORIDE 106 MEQ/L (99-109); GFR ESTIMATE (CALCULATED) > 59 mL/min/; GLUCOSE 141 mg/dL (70-99); POTASSIUM 3.7 MEQ/L (3.7-5.4); SODIUM 140 MEQ/L (136-147); TOTAL BILIRUBIN 0.4 MG/DL (0.0-1.0); TOTAL PROTEIN 4.2 G/DL (6.4-8.3); UREA NITROGEN (BUN) 19 mg/dL (9-23)
[2017-10-26 10:55] LABS: HEMOGLOBIN A1c (GLYCOHEMOGLOB) 5.8 % (Below 5.7)
[2017-10-26 18:20] LABS: BASOPHIL (%) 0.2 % (0-1); EOSINOPHIL (%) 0 % (0-5); HEMATOCRIT 24.2 % (36.0-46.0); HEMOGLOBIN 8.2 G/DL (11.9-15.5); IMMATURE GRANULOCYTE (%) 0.6 % (0.0-0.7); LYMPHOCYTE (%) 10.5 % (15-42); LYMPHOCYTE COUNT 2.1 K/uL (1.0-2.8); MCH 29.9 PG (29.0-34.0); MCHC 33.9 G/DL (30.0-36.0); MCV 88.3 FL (83-99); MONOCYTE (%) 8.3 % (3-12); MONOCYTE COUNT 1.7 K/uL (0-0.8); NEUTROPHIL (%) 80.4 % (45-76); NEUTROPHIL COUNT 16.1 K/uL (1.8-6.4); PLATELET COUNT 203 K/uL (156-360); RBC DIS.WIDTH-CV 13.6 % (11.8-14.6); RBC DIS.WIDTH-SD 43.4 % (39-53); RED BLOOD COUNT 2.74 M/uL (3.80-5.20)
[2017-10-27] VITALS (10 sets, daily range): BP systolic 129–208; BP diastolic 63–89
[2017-10-27 07:17] LABS: BASOPHIL (%) 0.2 % (0-1); EOSINOPHIL (%) 0 % (0-5); HEMATOCRIT 21.9 % (36.0-46.0); HEMOGLOBIN 7.2 G/DL (11.9-15.5); IMMATURE GRANULOCYTE (%) 0.7 % (0.0-0.7); LYMPHOCYTE (%) 9.6 % (15-42); LYMPHOCYTE COUNT 1.6 K/uL (1.0-2.8); MCH 28.9 PG (29.0-34.0); MCHC 32.9 G/DL (30.0-36.0); MONOCYTE (%) 7.5 % (3-12); MONOCYTE COUNT 1.3 K/uL (0-0.8); NEUTROPHIL COUNT 13.8 K/uL (1.8-6.4); PLATELET COUNT 171 K/uL (156-360); RBC DIS.WIDTH-CV 13.3 % (11.8-14.6); RBC DIS.WIDTH-SD 41.9 % (39-53); RED BLOOD COUNT 2.49 M/uL (3.80-5.20); WHITE BLOOD COUNT 16.8 K/uL (4.1-10.2)
[2017-10-27 07:44] LABS: CHLORIDE 104 MEQ/L (99-109); CREATININE 0.6 MG/DL (0.6-1.3); GFR ESTIMATE (CALCULATED) > 59 mL/min/; GLUCOSE 162 mg/dL (70-99); POTASSIUM 3.4 MEQ/L (3.7-5.4); SODIUM 140 MEQ/L (136-147); UREA NITROGEN (BUN) 12 mg/dL (9-23)
[2017-10-28] VITALS (12 sets, daily range): BP systolic 111–165; BP diastolic 59–77
[2017-10-28 07:05] LABS: BASOPHIL (%) 0.3 % (0-1); EOSINOPHIL (%) 0.1 % (0-5); HEMATOCRIT 20.4 % (36.0-46.0); IMMATURE GRANULOCYTE (%) 0.8 % (0.0-0.7); LYMPHOCYTE (%) 9.8 % (15-42); LYMPHOCYTE COUNT 1.5 K/uL (1.0-2.8); MCH 29.7 PG (29.0-34.0); MCHC 33.3 G/DL (30.0-36.0); MCV 89.1 FL (83-99); MONOCYTE (%) 6.4 % (3-12); NEUTROPHIL (%) 82.6 % (45-76); NEUTROPHIL COUNT 12.8 K/uL (1.8-6.4); PLATELET COUNT 152 K/uL (156-360); RBC DIS.WIDTH-CV 13.3 % (11.8-14.6); RBC DIS.WIDTH-SD 43.3 % (39-53); RED BLOOD COUNT 2.29 M/uL (3.80-5.20); WHITE BLOOD COUNT 15.5 K/uL (4.1-10.2)
[2017-10-28 07:10] LABS: HEMOGLOBIN 6.8 G/DL (11.9-15.5)
[2017-10-28 07:17] LABS: CHLORIDE 102 MEQ/L (99-109); CREATININE 0.6 MG/DL (0.6-1.3); GFR ESTIMATE (CALCULATED) > 59 mL/min/; GLUCOSE 144 mg/dL (70-99); POTASSIUM 3.4 MEQ/L (3.7-5.4); SODIUM 140 MEQ/L (136-147); UREA NITROGEN (BUN) 8 mg/dL (9-23)
[2017-10-28 10:24] LABS: HEMATOCRIT 20.4 % (36.0-46.0); MCV 89.5 FL (83-99)
[2017-10-28 10:32] LABS: HEMOGLOBIN 6.7 G/DL (11.9-15.5)
[2017-10-28 19:12] LABS: BASOPHIL (%) 0.3 % (0-1); EOSINOPHIL (%) 0.7 % (0-5); EOSINOPHIL COUNT 0.1 K/uL (0-0.3); HEMATOCRIT 25.1 % (36.0-46.0); IMMATURE GRANULOCYTE (%) 0.8 % (0.0-0.7); LYMPHOCYTE (%) 8.9 % (15-42); LYMPHOCYTE COUNT 1.3 K/uL (1.0-2.8); MCH 30.7 PG (29.0-34.0); MCHC 35.1 G/DL (30.0-36.0); MCV 87.5 FL (83-99); MONOCYTE (%) 7.7 % (3-12); MONOCYTE COUNT 1.1 K/uL (0-0.8); NEUTROPHIL (%) 81.6 % (45-76); PLATELET COUNT 151 K/uL (156-360); RBC DIS.WIDTH-CV 13.2 % (11.8-14.6); RBC DIS.WIDTH-SD 41.6 % (39-53); WHITE BLOOD COUNT 14.7 K/uL (4.1-10.2)
[2017-10-28 19:13] LABS: HEMOGLOBIN 8.8 G/DL (11.9-15.5); RED BLOOD COUNT 2.87 M/uL (3.80-5.20)
[2017-10-29 00:29] VITALS: BP 133/63
[2017-10-29 04:30] VITALS: BP 145/68
[2017-10-29 06:03] LABS: BASOPHIL (%) 0.3 % (0-1); EOSINOPHIL (%) 1.3 % (0-5); EOSINOPHIL COUNT 0.2 K/uL (0-0.3); HEMATOCRIT 24.8 % (36.0-46.0); HEMOGLOBIN 8.5 G/DL (11.9-15.5); IMMATURE GRANULOCYTE (%) 0.6 % (0.0-0.7); LYMPHOCYTE (%) 10.5 % (15-42); LYMPHOCYTE COUNT 1.3 K/uL (1.0-2.8); MCHC 34.3 G/DL (30.0-36.0); MCV 87.6 FL (83-99); MONOCYTE (%) 8.7 % (3-12); MONOCYTE COUNT 1.1 K/uL (0-0.8); NEUTROPHIL (%) 78.6 % (45-76); PLATELET COUNT 162 K/uL (156-360); RBC DIS.WIDTH-CV 13.2 % (11.8-14.6); RBC DIS.WIDTH-SD 42.3 % (39-53); RED BLOOD COUNT 2.83 M/uL (3.80-5.20); WHITE BLOOD COUNT 12.7 K/uL (4.1-10.2)
[2017-10-29 06:32] LABS: CHLORIDE 103 MEQ/L (99-109); CREATININE 0.5 MG/DL (0.6-1.3); GFR ESTIMATE (CALCULATED) > 59 mL/min/; GLUCOSE 125 mg/dL (70-99); POTASSIUM 3.6 MEQ/L (3.7-5.4); SODIUM 139 MEQ/L (136-147); UREA NITROGEN (BUN) 9 mg/dL (9-23)
[2017-10-29 07:56] VITALS: BP 147/67
[2017-10-29 08:54] LABS: MAGNESIUM 1.8 mg/dl (1.3-2.7)
[2017-10-29 11:23] VITALS: BP 146/64
[2017-10-29 16:11] VITALS: BP 150/66
[2017-10-29 19:59] VITALS: BP 154/87
[2017-10-30 00:07] VITALS: BP 172/77
[2017-10-30 03:52] VITALS: BP 155/75
[2017-10-30 06:41] LABS: BASOPHIL (%) 0.4 % (0-1); BASOPHIL COUNT 0.1 K/uL (0-0.1); EOSINOPHIL (%) 1.7 % (0-5); EOSINOPHIL COUNT 0.2 K/uL (0-0.3); HEMATOCRIT 25.4 % (36.0-46.0); HEMOGLOBIN 8.7 G/DL (11.9-15.5); LYMPHOCYTE (%) 9.4 % (15-42); LYMPHOCYTE COUNT 1.2 K/uL (1.0-2.8); MCH 30.1 PG (29.0-34.0); MCHC 34.3 G/DL (30.0-36.0); MCV 87.9 FL (83-99); MONOCYTE (%) 7.3 % (3-12); MONOCYTE COUNT 0.9 K/uL (0-0.8); NEUTROPHIL (%) 80.2 % (45-76); NEUTROPHIL COUNT 9.9 K/uL (1.8-6.4); PLATELET COUNT 194 K/uL (156-360); RBC DIS.WIDTH-CV 13.2 % (11.8-14.6); RBC DIS.WIDTH-SD 42.2 % (39-53); RED BLOOD COUNT 2.89 M/uL (3.80-5.20); WHITE BLOOD COUNT 12.4 K/uL (4.1-10.2)
[2017-10-30 07:04] LABS: CHLORIDE 100 MEQ/L (99-109); CREATININE 0.5 MG/DL (0.6-1.3); GFR ESTIMATE (CALCULATED) > 59 mL/min/; GLUCOSE 127 mg/dL (70-99); POTASSIUM 3.6 MEQ/L (3.7-5.4); SODIUM 133 MEQ/L (136-147); UREA NITROGEN (BUN) 7 mg/dL (9-23)
[2017-10-30 08:00] VITALS: BP 144/79
[2017-10-30 09:21] LABS: APPEARANCE CLEAR ((CLEAR)); BILIRUBIN NEGATIVE; BLOOD MODERATE; COLOR YELLOW ((YELLOW)); GLUCOSE (STRIP) NEGATIVE; KETONES NEGATIVE; LEUKOCYTES NEGATIVE; NITRITE NEGATIVE; PROTEIN (STRIP) NEGATIVE; UROBILINOGEN 0.2 MG/DL (0.2-1.0)
[2017-10-30 10:41] LABS: BACTERIA RARE /HPF; EPITHELIAL CELLS RARE /HPF; MUCUS TRACE /LPF; RED BLOOD CELLS TNTC /HPF (0-5); UCUL ADDED? YES; WHITE BLOOD CELLS 0-5 /HPF (0-5)
[2017-10-30 11:38] VITALS: BP 160/88
[2017-10-30 19:25] VITALS: BP 160/80
[2017-10-30 23:49] VITALS: BP 154/85
[2017-10-31 02:36] LABS: C DIFF TOXIN NEGATIVE (NEGATIVE)
[2017-10-31 03:51] VITALS: BP 184/91
[2017-10-31 06:32] LABS: BASOPHIL (%) 0.5 % (0-1); BASOPHIL COUNT 0.1 K/uL (0-0.1); EOSINOPHIL (%) 2.2 % (0-5); EOSINOPHIL COUNT 0.3 K/uL (0-0.3); HEMOGLOBIN 9.1 G/DL (11.9-15.5); IMMATURE GRANULOCYTE (%) 1.6 % (0.0-0.7); LYMPHOCYTE (%) 9.4 % (15-42); LYMPHOCYTE COUNT 1.1 K/uL (1.0-2.8); MCH 29.6 PG (29.0-34.0); MCHC 33.7 G/DL (30.0-36.0); MCV 87.9 FL (83-99); MONOCYTE (%) 7.6 % (3-12); MONOCYTE COUNT 0.9 K/uL (0-0.8); NEUTROPHIL (%) 78.7 % (45-76); NEUTROPHIL COUNT 9.3 K/uL (1.8-6.4); PLATELET COUNT 218 K/uL (156-360); RBC DIS.WIDTH-CV 13.2 % (11.8-14.6); RBC DIS.WIDTH-SD 41.8 % (39-53); RED BLOOD COUNT 3.07 M/uL (3.80-5.20); WHITE BLOOD COUNT 11.9 K/uL (4.1-10.2)
[2017-10-31 06:53] LABS: CHLORIDE 101 MEQ/L (99-109); CREATININE 0.5 MG/DL (0.6-1.3); GFR ESTIMATE (CALCULATED) > 59 mL/min/; GLUCOSE 132 mg/dL (70-99); POTASSIUM 3.8 MEQ/L (3.7-5.4); SODIUM 136 MEQ/L (136-147); UREA NITROGEN (BUN) 6 mg/dL (9-23)
[2017-10-31 07:31] VITALS: BP 208/82
[2017-10-31 11:23] VITALS: BP 192/83
[2017-10-31 15:39] VITALS: BP 185/86
[2017-10-31 19:15] VITALS: BP 176/77
[2017-11-01 01:08] VITALS: BP 158/82
[2017-11-01 06:00] LABS: BASOPHIL (%) 0.4 % (0-1); BASOPHIL COUNT 0.1 K/uL (0-0.1); EOSINOPHIL (%) 2.2 % (0-5); EOSINOPHIL COUNT 0.3 K/uL (0-0.3); HEMATOCRIT 27.7 % (36.0-46.0); HEMOGLOBIN 9.2 G/DL (11.9-15.5); IMMATURE GRANULOCYTE (%) 1.8 % (0.0-0.7); LYMPHOCYTE (%) 10.2 % (15-42); LYMPHOCYTE COUNT 1.3 K/uL (1.0-2.8); MCH 29.1 PG (29.0-34.0); MCHC 33.2 G/DL (30.0-36.0); MCV 87.7 FL (83-99); MONOCYTE (%) 6.7 % (3-12); MONOCYTE COUNT 0.9 K/uL (0-0.8); NEUTROPHIL (%) 78.7 % (45-76); NEUTROPHIL COUNT 10.2 K/uL (1.8-6.4); RBC DIS.WIDTH-CV 13.1 % (11.8-14.6); RBC DIS.WIDTH-SD 41.7 % (39-53); RED BLOOD COUNT 3.16 M/uL (3.80-5.20); WHITE BLOOD COUNT 12.9 K/uL (4.1-10.2)
[2017-11-01 06:05] LABS: PLATELET COUNT 296 K/uL (156-360)
[2017-11-01 06:26] LABS: CREATININE 0.5 MG/DL (0.6-1.3); GFR ESTIMATE (CALCULATED) > 59 mL/min/; GLUCOSE 121 mg/dL (70-99); UREA NITROGEN (BUN) 5 mg/dL (9-23)
[2017-11-01 06:46] LABS: CHLORIDE 99 MEQ/L (99-109); SODIUM 136 MEQ/L (136-147)
[2017-11-01 07:45] VITALS: BP 152/58
[2017-11-01 16:36] VITALS: BP 160/70
[2017-11-01 23:29] VITALS: BP 153/63
[2017-11-02 07:00] LABS: BASOPHIL (%) 0.3 % (0-1); EOSINOPHIL (%) 2.7 % (0-5); EOSINOPHIL COUNT 0.3 K/uL (0-0.3); HEMATOCRIT 25.1 % (36.0-46.0); HEMOGLOBIN 8.5 G/DL (11.9-15.5); IMMATURE GRANULOCYTE (%) 1.6 % (0.0-0.7); LYMPHOCYTE (%) 9.7 % (15-42); MCHC 33.9 G/DL (30.0-36.0); MCV 88.7 FL (83-99); MONOCYTE (%) 7.8 % (3-12); MONOCYTE COUNT 0.8 K/uL (0-0.8); NEUTROPHIL (%) 77.9 % (45-76); NEUTROPHIL COUNT 8.2 K/uL (1.8-6.4); PLATELET COUNT 260 K/uL (156-360); RBC DIS.WIDTH-CV 13.1 % (11.8-14.6); RBC DIS.WIDTH-SD 41.9 % (39-53); RED BLOOD COUNT 2.83 M/uL (3.80-5.20); WHITE BLOOD COUNT 10.5 K/uL (4.1-10.2)
[2017-11-02 07:36] LABS: CHLORIDE 100 MEQ/L (99-109); CREATININE 0.5 MG/DL (0.6-1.3); GFR ESTIMATE (CALCULATED) > 59 mL/min/; GLUCOSE 140 mg/dL (70-99); POTASSIUM 3.7 MEQ/L (3.7-5.4); SODIUM 136 MEQ/L (136-147); UREA NITROGEN (BUN) 4 mg/dL (9-23)
[2017-11-02 08:00] VITALS: BP 192/86
[2017-11-02 10:15] VITALS: BP 168/64
[2017-11-02 12:00] VITALS: BP 186/79
[2017-11-02 16:00] VITALS: BP 174/68
[2017-11-02 17:00] VITALS: BP 156/60
[2017-11-02 23:50] VITALS: BP 181/83
[2017-11-03 07:09] LABS: BASOPHIL (%) 0.3 % (0-1); EOSINOPHIL (%) 1.4 % (0-5); EOSINOPHIL COUNT 0.2 K/uL (0-0.3); HEMATOCRIT 25.3 % (36.0-46.0); HEMOGLOBIN 8.3 G/DL (11.9-15.5); IMMATURE GRANULOCYTE (%) 1.2 % (0.0-0.7); LYMPHOCYTE (%) 8.6 % (15-42); MCH 28.5 PG (29.0-34.0); MCHC 32.8 G/DL (30.0-36.0); MCV 86.9 FL (83-99); MONOCYTE (%) 7.5 % (3-12); MONOCYTE COUNT 0.9 K/uL (0-0.8); NEUTROPHIL COUNT 9.1 K/uL (1.8-6.4); PLATELET COUNT 309 K/uL (156-360); RBC DIS.WIDTH-CV 12.9 % (11.8-14.6); RBC DIS.WIDTH-SD 41.1 % (39-53); RED BLOOD COUNT 2.91 M/uL (3.80-5.20); WHITE BLOOD COUNT 11.3 K/uL (4.1-10.2)
[2017-11-03 07:32] LABS: CHLORIDE 99 MEQ/L (99-109); CREATININE 0.6 MG/DL (0.6-1.3); GFR ESTIMATE (CALCULATED) > 59 mL/min/; GLUCOSE 128 mg/dL (70-99); POTASSIUM 3.9 MEQ/L (3.7-5.4); SODIUM 135 MEQ/L (136-147); UREA NITROGEN (BUN) 5 mg/dL (9-23)
[2017-11-03 08:00] VITALS: BP 160/80
[2017-11-03] MEDS ORDERED: COLACE100 MG PO (09:45)
== END 2017-11-03 11:45 | disposition home or self-care (01) | DRG 330 ==
LOC: ENRESERV 21:53 → 2SOUTH 10-25 07:35 → ENRESERV 10-25 14:43 → 2SOUTH 10-25 14:48 → ENRESERV 10-25 14:49 → 2EAST 10-25 20:55
PROVIDERS: Hospitalist; Internal Medicine; Physician Assistant; Surgery
DX: Z43.3 Encounter for attention to colostomy (principal); D62 Acute posthemorrhagic anemia; F11.20 Opioid dependence, uncomplicated; K62.4 Stenosis of anus and rectum; K43.5 Parastomal hernia without obstruction or gangrene; Z96.652 Presence of left artificial knee joint; I10 Essential (primary) hypertension; I25.10 Atherosclerotic heart disease of native coronary artery without angina pectoris; E03.9 Hypothyroidism, unspecified; E87.6 Hypokalemia; G89.29 Other chronic pain; Z95.5 Presence of coronary angioplasty implant and graft; E66.9 Obesity, unspecified; Z68.31 Body mass index [BMI] 31.0-31.9, adult; Z90.710 Acquired absence of both cervix and uterus; E78.5 Hyperlipidemia, unspecified; R00.0 Tachycardia, unspecified; R60.1 Generalized edema; R73.9 Hyperglycemia, unspecified; E87.2 Acidosis
CPT/HCPCS: 71045; 80048; 80053; 81003; 82948; 83036; 83735; 85014; 85018; 85025; 85025 91; 85027; 86850; 86900; 86901; 86920; 87086; 87493; 88305; 94640; 94799; J0330; J0360; J0610; J1100; J1170; J1644; J1815; J2001; J2405; J2710; J3010; J3475; J3480; J7040; J7050; J7120; P9016; P9045; Q0175; S0074

== ENCOUNTER 2017-11-05 10:06 | Inpatient (IN) | payer OTHER ==
[~2017-11-05] VITALS: Ht 157.5 cm; Wt 77.4 kg
[~2017-11-05 10:06] MED LIST changes: +3 DAY VAGINAL25 GM VG; +COLACE100 MG PO; +[UNRECOGNIZED DRUG - REMARK]
[2017-11-05 10:54] LABS: BASOPHIL (%) 0.3 % (0-1); BASOPHIL COUNT 0.1 K/uL (0-0.1); EOSINOPHIL (%) 0.4 % (0-5); EOSINOPHIL COUNT 0.1 K/uL (0-0.3); HEMATOCRIT 27.3 % (36.0-46.0); HEMOGLOBIN 9.4 G/DL (11.9-15.5); IMMATURE GRANULOCYTE (%) 0.7 % (0.0-0.7); LYMPHOCYTE (%) 4.6 % (15-42); LYMPHOCYTE COUNT 0.9 K/uL (1.0-2.8); MCHC 34.4 G/DL (30.0-36.0); MCV 84.3 FL (83-99); MONOCYTE (%) 4.7 % (3-12); MONOCYTE COUNT 0.9 K/uL (0-0.8); NEUTROPHIL (%) 89.3 % (45-76); NEUTROPHIL COUNT 17.1 K/uL (1.8-6.4); PLATELET COUNT 362 K/uL (156-360); RBC DIS.WIDTH-CV 12.5 % (11.8-14.6); RED BLOOD COUNT 3.24 M/uL (3.80-5.20); WHITE BLOOD COUNT 19.1 K/uL (4.1-10.2)
[2017-11-05 11:02] LABS: ALBUMIN 3.4 g/dL (3.2-4.8); CHLORIDE 95 mEq/L (99-109); POTASSIUM 3.5 mEq/L (3.7-5.4); SODIUM 134 mEq/L (136-147)
[2017-11-05 11:04] LABS: GLUCOSE 130 mg/dL (70-99); TOTAL PROTEIN 6.7 g/dL (6.4-8.3)
[2017-11-05 11:06] LABS: TOTAL BILIRUBIN 0.6 mg/dL (0.0-1.0)
[2017-11-05 11:08] LABS: ALKALINE PHOSPHATASE 118 IU/L (3-129); CREATININE 0.7 mg/dL (0.6-1.3); GFR ESTIMATE (CALCULATED) > 59 mL/min/
[2017-11-05 11:09] LABS: UREA NITROGEN (BUN) 8 mg/dL (9-23)
[2017-11-05 11:10] LABS: AST (GOT) 19 IU/L (2-34)
[2017-11-05 11:11] LABS: ALT (GPT) 27 IU/L (3-49); LIPASE 10 U/L (1.0-51.0)
[2017-11-05 14:22] LABS: APPEARANCE CLEAR ((CLEAR)); BILIRUBIN NEGATIVE; BLOOD NEGATIVE; COLOR YELLOW ((YELLOW)); GLUCOSE (STRIP) NEGATIVE; KETONES NEGATIVE; LEUKOCYTES NEGATIVE; NITRITE NEGATIVE; PROTEIN (STRIP) NEGATIVE; SPECIFIC GRAVITY 1.041 (1.000-1.030); UCUL ADDED? NO; UROBILINOGEN 0.2 MG/DL (0.2-1.0)
[2017-11-05 14:26] LABS: INTER. NORMALIZED RATIO 1.2
[2017-11-05] MEDS ORDERED: NIFEDIPINE ER30 MG PO (14:37)
[2017-11-05] MEDS ORDERED: COLACE100 MG PO (14:42)
[2017-11-05] MEDS ORDERED: PENNSAID112 GM TP (14:46)
[2017-11-05 20:03] VITALS: BP 151/79
[2017-11-05 23:20] VITALS: BP 157/80
[2017-11-06 03:54] VITALS: BP 142/65
[2017-11-06 07:03] LABS: CHLORIDE 106 MEQ/L (99-109); CREATININE 0.6 MG/DL (0.6-1.3); GFR ESTIMATE (CALCULATED) > 59 mL/min/; GLUCOSE 146 mg/dL (70-99); POTASSIUM 3.4 MEQ/L (3.7-5.4); SODIUM 139 MEQ/L (136-147); UREA NITROGEN (BUN) 6 mg/dL (9-23)
[2017-11-06 08:00] VITALS: BP 180/90
[2017-11-06 08:01] LABS: HEMATOCRIT 23.6 % (36.0-46.0); HEMOGLOBIN 7.8 G/DL (11.9-15.5); MCHC 33.1 G/DL (30.0-36.0); MCV 87.7 FL (83-99); PLATELET COUNT 301 K/uL (156-360); RBC DIS.WIDTH-CV 13.2 % (11.8-14.6); RED BLOOD COUNT 2.69 M/uL (3.80-5.20); WHITE BLOOD COUNT 8.9 K/uL (4.1-10.2)
[2017-11-06 12:00] VITALS: BP 177/83
[2017-11-06 16:26] VITALS: BP 153/67
[2017-11-06 19:05] VITALS: BP 189/84
[2017-11-06 21:15] VITALS: BP 161/73
[2017-11-07 00:40] VITALS: BP 168/78
[2017-11-07 06:17] LABS: HEMATOCRIT 25.3 % (36.0-46.0); HEMOGLOBIN 8.4 G/DL (11.9-15.5); MCH 29.2 PG (29.0-34.0); MCHC 33.2 G/DL (30.0-36.0); MCV 87.8 FL (83-99); PLATELET COUNT 342 K/uL (156-360); RBC DIS.WIDTH-CV 13.1 % (11.8-14.6); RBC DIS.WIDTH-SD 41.5 % (39-53); RED BLOOD COUNT 2.88 M/uL (3.80-5.20); WHITE BLOOD COUNT 8.4 K/uL (4.1-10.2)
[2017-11-07 06:44] LABS: CHLORIDE 106 MEQ/L (99-109); CREATININE 0.5 MG/DL (0.6-1.3); GFR ESTIMATE (CALCULATED) > 59 mL/min/; GLUCOSE 127 mg/dL (70-99); POTASSIUM 3.8 MEQ/L (3.7-5.4); SODIUM 141 MEQ/L (136-147); UREA NITROGEN (BUN) 3 mg/dL (9-23)
[2017-11-07 08:15] VITALS: BP 184/84
[2017-11-07 12:00] VITALS: BP 160/78
[2017-11-07 16:15] VITALS: BP 148/84
[2017-11-07 20:39] VITALS: BP 144/82
[2017-11-08 00:47] VITALS: BP 155/80
[2017-11-08 03:38] VITALS: BP 145/84
[2017-11-08 06:13] LABS: HEMATOCRIT 28.4 % (36.0-46.0); HEMOGLOBIN 9.5 G/DL (11.9-15.5); MCH 28.8 PG (29.0-34.0); MCHC 33.5 G/DL (30.0-36.0); MCV 86.1 FL (83-99); PLATELET COUNT 430 K/uL (156-360); RBC DIS.WIDTH-CV 12.9 % (11.8-14.6); RBC DIS.WIDTH-SD 40.6 % (39-53); WHITE BLOOD COUNT 9.3 K/uL (4.1-10.2)
[2017-11-08 06:34] LABS: CHLORIDE 101 MEQ/L (99-109); CREATININE 0.6 MG/DL (0.6-1.3); GFR ESTIMATE (CALCULATED) > 59 mL/min/; GLUCOSE 131 mg/dL (70-99); POTASSIUM 3.9 MEQ/L (3.7-5.4); SODIUM 138 MEQ/L (136-147); UREA NITROGEN (BUN) 3 mg/dL (9-23)
[2017-11-08 07:42] VITALS: BP 160/78
[2017-11-08 15:55] VITALS: BP 206/92
[2017-11-08 16:06] LABS: C DIFF TOXIN NEGATIVE (NEGATIVE)
[2017-11-08 18:01] VITALS: BP 160/71
[2017-11-08 20:20] VITALS: BP 155/81
[2017-11-09] VITALS (8 sets, daily range): BP systolic 116–210; BP diastolic 56–100
[2017-11-09 07:47] LABS: HEMATOCRIT 30.5 % (36.0-46.0); HEMOGLOBIN 9.8 G/DL (11.9-15.5); MCH 27.8 PG (29.0-34.0); MCHC 32.1 G/DL (30.0-36.0); MCV 86.6 FL (83-99); PLATELET COUNT 470 K/uL (156-360); RBC DIS.WIDTH-CV 13.2 % (11.8-14.6); RBC DIS.WIDTH-SD 41.3 % (39-53); RED BLOOD COUNT 3.52 M/uL (3.80-5.20); WHITE BLOOD COUNT 9.9 K/uL (4.1-10.2)
[2017-11-09 08:28] LABS: CHLORIDE 102 MEQ/L (99-109); CREATININE 0.6 MG/DL (0.6-1.3); GFR ESTIMATE (CALCULATED) > 59 mL/min/; GLUCOSE 122 mg/dL (70-99); POTASSIUM 4.3 MEQ/L (3.7-5.4); SODIUM 138 MEQ/L (136-147); UREA NITROGEN (BUN) 4 mg/dL (9-23)
[2017-11-10] VITALS (8 sets, daily range): BP systolic 140–200; BP diastolic 72–95
[2017-11-10 07:16] LABS: HEMATOCRIT 29.4 % (36.0-46.0); HEMOGLOBIN 9.6 G/DL (11.9-15.5); MCH 28.5 PG (29.0-34.0); MCHC 32.7 G/DL (30.0-36.0); MCV 87.2 FL (83-99); PLATELET COUNT 444 K/uL (156-360); RBC DIS.WIDTH-CV 13.5 % (11.8-14.6); RED BLOOD COUNT 3.37 M/uL (3.80-5.20)
[2017-11-10 07:35] LABS: CHLORIDE 103 MEQ/L (99-109); CREATININE 0.7 MG/DL (0.6-1.3); GFR ESTIMATE (CALCULATED) > 59 mL/min/; GLUCOSE 134 mg/dL (70-99); SODIUM 138 MEQ/L (136-147); UREA NITROGEN (BUN) 9 mg/dL (9-23)
[2017-11-11 03:23] VITALS: BP 176/75
[2017-11-11 08:00] VITALS: BP 174/80
[2017-11-11 08:57] VITALS: BP 168/70
[2017-11-11 16:11] VITALS: BP 165/77
[2017-11-11 20:00] VITALS: BP 138/70
[2017-11-11 23:40] VITALS: BP 142/69
[2017-11-12 03:10] VITALS: BP 138/70
[2017-11-12 07:01] VITALS: BP 168/82
[2017-11-12 07:33] VITALS: BP 154/78
[2017-11-12] MEDS ORDERED: LOPRESSOR50 MG PO (11:21)
[2017-11-12] MEDS ORDERED: NIFEDIPINE ER30 MG PO (11:21)
[2017-11-12] MEDS ORDERED: APRESOLINE25 MG PO (11:22)
[2017-11-12] MEDS ORDERED: COLESTID1 GM PO (13:27)
[2017-11-12] MEDS ORDERED: AMOX TR-K CLV1 EAC4 PO (13:27)
[2017-11-12 15:14] VITALS: BP 158/78
== END 2017-11-12 16:48 | disposition home or self-care (01) | DRG 920 ==
LOC: EME 10:06 → EDOF 13:16 → 2EAST 13:16 → ENRESERV 13:21 → 2EAST 20:00
PROVIDERS: Emergency Medicine; Physician Assistant; Surgery
PROC: 0W9J30Z Drainage of Pelvic Cavity with Drainage Device, Percutaneous Approach (ICD-10-PCS; principal; 2017-11-05)
DX: K91.872 Postprocedural seroma of a digestive system organ or structure following a digestive system procedure (principal); F33.9 Major depressive disorder, recurrent, unspecified; N73.9 Female pelvic inflammatory disease, unspecified; K91.870 Postprocedural hematoma of a digestive system organ or structure following a digestive system procedure; E03.9 Hypothyroidism, unspecified; E11.9 Type 2 diabetes mellitus without complications; E78.5 Hyperlipidemia, unspecified; I10 Essential (primary) hypertension; I25.10 Atherosclerotic heart disease of native coronary artery without angina pectoris; K21.9 Gastro-esophageal reflux disease without esophagitis; D64.9 Anemia, unspecified; Z96.652 Presence of left artificial knee joint; K59.09 Other constipation; K59.03 Drug induced constipation; R33.9 Retention of urine, unspecified; D69.1 Qualitative platelet defects; E66.9 Obesity, unspecified; F41.9 Anxiety disorder, unspecified; G47.00 Insomnia, unspecified; G89.29 Other chronic pain; N73.6 Female pelvic peritoneal adhesions (postinfective); Z87.442 Personal history of urinary calculi; Z87.891 Personal history of nicotine dependence; Z90.710 Acquired absence of both cervix and uterus; Z90.49 Acquired absence of other specified parts of digestive tract; Z95.5 Presence of coronary angioplasty implant and graft; Z79.82 Long term (current) use of aspirin; Z79.02 Long term (current) use of antithrombotics/antiplatelets; Z68.31 Body mass index [BMI] 31.0-31.9, adult
CPT/HCPCS: 49406; 74177; 80048; 80053; 81003; 83690; 85025; 85027; 85610; 85730; 86850; 86900; 86901; 87070; 87075; 87076; 87185; 87205; 87493; 99281; 99285; C1769; J0360; J1170; J1650; J2270; J2405; J2543; J3010; J3480; J7030; J7042; J7050; S0030

== ENCOUNTER 2018-03-10 21:53 | Inpatient (IN) | payer OTHER ==
[~2018-03-10] VITALS: Ht 157.5 cm; Wt 74.8 kg
[~2018-03-10 21:53] MED LIST changes: +AMOX TR-K CLV1 EAC4 PO; +APRESOLINE25 MG PO; +COLESTID1 GM PO; +DETROL LA4 MG PO; +PROCARDIA XL30 MG PO; +ZOVIRAX200 MG PO
[2018-03-11 10:08] VITALS: BP 133/60
[2018-03-11 17:28] VITALS: BP 108/58
[2018-03-11 18:43] VITALS: BP 98/51
[2018-03-11 19:55] VITALS: BP 98/50
[2018-03-11 23:28] VITALS: BP 109/53
[2018-03-12 04:05] VITALS: BP 116/59
[2018-03-12 06:22] LABS: HEMATOCRIT 28.6 % (36.0-46.0); MCV 88.5 FL (83-99)
[2018-03-12 06:34] LABS: HEMOGLOBIN 9.2 G/DL (11.9-15.5)
[2018-03-12 07:54] VITALS: BP 112/54
[2018-03-12] MEDS ORDERED: OXYCODONE HCL5 MG PO (08:56)
[2018-03-12 10:12] VITALS: BP 125/57
== END 2018-03-12 11:36 | disposition home or self-care (01) | DRG 483 ==
LOC: ENRESERV 21:53 → CANRESERV 21:53 → 2SOUTH 03-11 09:33 → ENRESERV 03-11 13:55 → CANRESERV 03-11 13:55 → 2SOUTH 03-11 15:00 → CANRESERV 03-11 15:07 → ENRESERV 03-11 15:07 → 3EAST 03-11 17:07
PROVIDERS: Orthopaedic Surgery
PROC: 0RRJ00Z Replacement of Right Shoulder Joint with Reverse Ball and Socket Synthetic Substitute, Open Approach (ICD-10-PCS; principal; 2018-03-11)
PROC: 3E0T3BZ Introduction of Anesthetic Agent into Peripheral Nerves and Plexi, Percutaneous Approach (ICD-10-PCS; 2018-03-11)
DX: M75.101 Unspecified rotator cuff tear or rupture of right shoulder, not specified as traumatic (principal); I10 Essential (primary) hypertension; E03.9 Hypothyroidism, unspecified; K21.9 Gastro-esophageal reflux disease without esophagitis; F41.9 Anxiety disorder, unspecified; F32.9 Major depressive disorder, single episode, unspecified; Z96.652 Presence of left artificial knee joint; Z96.693 Finger-joint replacement, bilateral; I25.2 Old myocardial infarction; Z87.891 Personal history of nicotine dependence; Z79.02 Long term (current) use of antithrombotics/antiplatelets; Z79.82 Long term (current) use of aspirin
CPT/HCPCS: 85014; 85018; C1713; J0690; J1100; J1885; J2250; J2370; J2405; J2795; J3010; J7030; J7050